=== PATIENT | male | born 1960 | race Caucasian/White ===

== ENCOUNTER 2023-08-14 05:02 | Emergency (ER) | payer BC ==
[~2023-08-14] VITALS: Ht 175.3 cm; Wt 82.0 kg
[2023-08-14 05:21] VITALS: O2SAT 100
[2023-08-14] MEDS ORDERED: ONDANSETRON HCL 4MG/2ML INJ IV STA (05:39)
[2023-08-14] MEDS ORDERED: KETOROLAC 30MG/ML VIAL IV ONE (05:45)
[2023-08-14] MEDS ORDERED: SODIUM CHLORIDE 0.9% 1,000 ML IV ONE (05:45)
[2023-08-14 07:05] LABS: CLARITY URINE CLEAR (CLEAR); COLOR URINE YELLOW (YELLOW); GLUCOSE URINE NEGATIVE (NEGATIVE); KETONES URINE NEGATIVE (NEGATIVE); LEUKOCYTE ESTERASE URINE NEGATIVE (NEGATIVE); NITRITE URINE NEGATIVE (NEGATIVE); OCCULT BLOOD URINE 2+ (NEGATIVE); PROTEIN URINE NEGATIVE (NEGATIVE); SPECIFIC GRAVITY URINE 1.014 (1.005-1.030); UROBILINOGEN URINE 0.2 E.U./dL (0.2-1.0)
[2023-08-14 07:05] LABS: HEMATOCRIT. 44.5 % (42.0-52.0); HEMOGLOBIN. 14.9 g/dL (14.0-18.0); MEAN CORPUSCULAR HGB CONC 33.5 g/dL (31.0-37.0); MEAN CORPUSCULAR VOLUME 95.6 fL (80.0-94.0); MEAN PLATELET VOLUME 8.5 fl (7.4-10.4); PLATELET 263 x1000/uL (130-400); RED BLOOD CELL COUNT 4.66 mill/uL (4.7-6.1); RED CELL DISTRIBUTION WIDTH 13.4 % (11.6-14.6); WHITE BLOOD COUNT 11.6 x1000/uL (4.5-11.0)
[2023-08-14 07:06] LABS: DIFFERENTIAL COMMENT 1
[2023-08-14 07:21] LABS: PROTHROMBIN TIME 10.6 sec (9.6-11.0)
[2023-08-14 07:22] LABS: ALANINE AMINOTRANSFERASE 26 IU/L (10-49); ALBUMIN 4.3 g/dL (3.2-4.8); ASPARTATE AMINOTRANSFERASE 20 IU/L (<34); BILIRUBIN TOTAL 0.5 mg/dL (0.1-1.0); CALCIUM 9.1 mg/dL (8.7-10.4); CARBON DIOXIDE 20 mEq/L (21-32); CHLORIDE 108 mEq/L (98-107); CREATININE 1.3 mg/dL (0.6-1.3); GLUCOSE 126 mg/dL (70-105); POTASSIUM 3.7 mEq/L (3.5-5.1); PROTEIN TOTAL 6.3 g/dL (6.0-8.3); SODIUM 138 mEq/L (136-145); UREA NITROGEN BLOOD 17 mg/dL (9-23)
[2023-08-14 07:24] LABS: SQUAMOUS EPITHELIAL CELL URINE NONE SEEN /lpf (RARE/1+); YEAST URINE NONE SEEN
[2023-08-14 07:35] LABS: BACTERIA URINE FEW; WBC URINE 0-2 /hpf (0-2)
[2023-08-14] MEDS ORDERED: IOHEXOL-300 100 ML BOTTLE ONE (08:57)
[2023-08-14] MEDS ORDERED: IBUP-2029 MT (10:51)
[2023-08-14] MEDS ORDERED: TAMS-11 MT (10:51)
[2023-08-14 10:56] VITALS: BP 150/87; PULSE 66; RESP 16; TEMP 98.3
[2023-08-14 12:45] LABS: PLATELET ESTIMATE NORMAL
== END 2023-08-14 11:20 | disposition home or self-care (01) ==
LOC: ER 05:02
DX: R31.9 Hematuria, unspecified (principal)
CPT/HCPCS: 80053; 81003; 83690; 85025; 85610; 36415; 74177; 96361; 96374; 96375; 99285; Q9967; J1885; J2405; J7030; Z7610 ×3